=== PATIENT | male | born 1965 | race Caucasian/White ===

== ENCOUNTER → 2022-11-02 | Outpatient (CLI) | payer OTHER ==
[~2022-11-02] VITALS: Ht 180 cm; Wt 109.0 kg
[~2022-11-02] MED LIST: CATHETER FLUSH 10 ML SYR IVP PRN; REGADENOSON 0.4 MG/5 ML SYR (LEXISCAN) IV ONE
[2022-11-02 09:20] VITALS: BP 120/80
--- NOTE | 2022-11-02 14:16 | Cardiology Stress Test Report ---
Stress Test Report Date of Procedure/Referring: Date of Procedure: Nov 02, 2022 PCP Alcon Rosenberg MD Admitting Physician Admitting Physician: Attending Physician: Alcon Rosenberg MD Baseline Heart Rate: 80 Baseline Blood Pressure: Blood Pressure Systolic: 120 Blood Pressure Diastolic: 80 Baseline Vitals Vital Signs Date Time Temp Pulse Resp B/P (MAP) Pulse Ox O2 Delivery O2 Flow Rate FiO2 11/02/22 09:20 80 17 120/80 (93) 97 Room Air Baseline EKG: Baseline EKG: NSR Summary After explaining the procedure to the patient, he signed a consent and then brought to the stress nuclear laboratory. Patient received 0.4 mg Lexiscan for stress test, ECG, heart rate and blood pressure were monitored continuously. Resting and stress dose of radio tracer were injected, imaging was acquired and reviewed in short axis, horizontal long axis and vertical long axis views. TID: 1.16 SSS: 6 SDS: 5 EF: 50 1. Patient tolerated Lexiscan well 2. Reversible ischemia involving the inferior wall and inferoapical segment 3. Normal left ventricular size, ejection fraction 50% Copy Copies To 1: [facility]/EWA BLAS MD Nov 02, 2022 14:16
== END ==
LOC: CARD 07:19
PROVIDERS: ATTEND Family Medicine
DX: U07.1 COVID-19 (principal); I25.89 Other forms of chronic ischemic heart disease
CPT/HCPCS: 78452; 93017

== ENCOUNTER 2022-11-16 10:00 | Day surgery (SDC) | payer OTHER ==
[~2022-11-16] VITALS: Ht 180 cm; Wt 112.9 kg
[2022-11-16] VITALS (10 sets, daily range): BP systolic 90–114; BP diastolic 62–76
[2022-11-16 08:30] LABS: HEMATOCRIT 48 % (40-54); HEMOGLOBIN 16.6 g/dL (13.3-17.7); MEAN CORPUSCULAR HEMOGLOBIN 31 pg (25-34); MEAN CORPUSCULAR HGB CONC 35 g/dL (32-36); MEAN CORPUSCULAR VOLUME 90 fL (80-99); MEAN PLATELET VOLUME 9.6 fL (9.0-12.2); PLATELET COUNT 338 10^3/uL (130-400); WHITE BLOOD COUNT 8.4 10^3/uL (4.3-11.0)
--- NOTE | 2022-11-16 08:33 | Diagnostic Imaging Report ---
INDICATION: Preoperative evaluation prior to heart catheterization patient with abnormal stress test. Single AP view of the chest is obtained. COMPARISON: No previous study is available for comparison at this time. FINDINGS: Heart size and pulmonary vasculature are within normal limits, and the lungs are clear, bilaterally. IMPRESSION: Unremarkable chest. Dictated by: Dictated on workstation # [id number]
[2022-11-16 08:42] LABS: INR 0.9 (0.8-1.4); PROTHROMBIN TIME PATIENT 12.6 SEC (12.2-14.7)
[2022-11-16 09:27] LABS: ALANINE AMINOTRANSFERASE 41 U/L (0-55); ALBUMIN 4.7 GM/DL (3.2-4.5); ALKALINE PHOSPHATASE 64 U/L (40-136); BILIRUBIN,TOTAL 0.5 MG/DL (0.1-1.0); BUN/CREATININE RATIO 24; CALCIUM 10.6 MG/DL (8.5-10.1); CARBON DIOXIDE 23 MMOL/L (21-32); CHLORIDE 103 MMOL/L (98-107); CHOLESTEROL 222 MG/DL (< 200); CREATININE SERUM 1.14 MG/DL (0.60-1.30); GFR ESTIMATED 76; GLUCOSE 191 MG/DL (70-105); HDL CHOLESTEROL 47 MG/DL (40-60); POTASSIUM 4.2 MMOL/L (3.6-5.0); SODIUM 137 MMOL/L (135-145); TOTAL PROTEIN 7.8 GM/DL (6.4-8.2); TRIGLYCERIDES 183 MG/DL (<150); VLDL CHOLESTEROL 37 MG/DL (5-40)
[~2022-11-16 10:00] MED LIST changes: +ALLO300T2 PO; +ASPI-999 PO; -CATHETER FLUSH 10 ML SYR IVP PRN; +CITA20TA9 PO; +HEParin (CATH LAB) 2,000 ML IV ONE; +HEParin 1000 UNIT/ML (10ML VIAL) FOR BOLUS ONE; +LIDOCAINE 1% INJ 30 ML (XYLOCAINE) VIAL ONE; +LISI20TA26 PO; +MELO15TA39 PO; +METF-399 PO; +MIDAZOLAM 5 MG/5 ML (VERSED) VIAL ONE; +MULT-1067 PO; +NITRO DRIP 25000 MCG/D5W 250 ML IV ONE; +NS IV 1000 ML 1,000 ML IV ONE; +NS IV 1000 ML 1,000 ML ONE; +PRAV40TA2 PO; -REGADENOSON 0.4 MG/5 ML SYR (LEXISCAN) IV ONE; +TRIA1TAB5 PO; +VERAPAMIL 5 MG/2 ML (CALAN) VIAL IV ONE; +fentaNYL INJ 100 MCG/2 ML AMP ONE
--- NOTE | 2022-11-16 10:04 | Cardiac Procedure Note-CS/ASA ---
Pre-Procedure Note Pre-Op Procedure Note Date of Available H&P: Nov 03, 2022 Date H&P Reviewed: Nov 16, 2022 Time H&P Reviewed: 10:03 History & Physical: H&P Reviewed, Patient Examed, No changes noted Pre-Operative Diagnosis: CAD Conscious Sedation Pre-Proced Time 10:04 ASA Score 3 For ASA 3 and 4: Consider anesthesia and medical clearance. Also, for patients with a history of failed moderate sedation consider anesthesia. Airway Lungs Heart ASA score ASA 1: a normal healthy patient ASA 2: a patient with a mild systemic disease (mid diabetes, controlled hypertension, obesity ASA 3: a patient with a severe systemic disease that limits activity (angina, COPD, prior Myocardial infarction) ASA 4: a patient with an incapacitating disease that is a constant threat to life (CHF, renal failure) ASA 5: a moribund patient not expected to survive 24 hrs. (ruptured aneurysm) ASA 6: a declared brain- patient whose organs are being harvested. For emergent operations, add the letter E after the classification Mallampati Classification Grade 3 Sedation Plan Analgesia, Amnesia, Plan communicated to team members, Discussed options with patient/fam, Discussed risks with patient/fam The patient is an appropriate candidate to undergo the planned procedure, sedation, and anesthesia. The patient immediately re-assessed prior to indication. EWA DUBOIS MD Nov 16, 2022 10:04
[2022-11-16] MEDS ORDERED: ATOR80TA76 PO (10:49)
--- NOTE | 2022-11-16 10:49 | Discharge Inst-Post CATH ---
Discharge Inst-CATH/EP Problems Reviewed?: Yes Post Cardiac Cath/EP D/C Inst Follow Up/Plan Appointment with Dr. Pollard's office in 2 to 4 weeks <b>CARDIAC CATH/EP PROCEDURE DISCHARGE INSTRUCTIONS</b> ACTIVITY * Go Home directly and rest. * Limit activity of the leg (or wrist if it was used) for 7 days including aer obics, swimming, jogging, bicycling, etc. * Restrict stair-climbing for 7 days if possible, if not, climb up with your non-cath leg, then bring together on the same step. * Avoid lifting, pushing, pulling or excessive movement of the affected extremi ty for 7 days. * Customary sexual activity may be resumed after 2 days-use caution not to use a position that strains or causes pain to the affected extremity. * No driving for 24 hours. * NO SMOKING. * Avoid straining for bowel movements for 7 days. * Gentle walking on level ground is allowed. * Returning to work will depend on the type of procedure and the results. Your doctor will discuss this with you. CALL YOUR DOCTOR FOR ANY OF THE FOLLOWING: *If bleeding from the puncture site occurs- Apply gentle pressure to site with clean cloth and call your doctor or EMS. * If a knot or lump forms under the skin, increases in size, or causes pain. * If bruising appears to be worsening or moving further down your leg instead of disappearing. * Temperature above 101 F. CARE OF YOUR GROIN INCISION; * Bruising or purple discoloration of the skin near the puncture site is common. * You may shower only, no bathtub bathing for 5 days. Be careful to avoid slipping as your leg may feel stiff. * If a closure device was used on your femoral artery, please see the attached guide regarding care of the device and your leg. * Leave dressing on FOR 24 hours. CARE OF YOUR WRIST INCISION; * Bruising or purple discoloration of the skin near the puncture site is common. * You may shower. * DO NOT submerge wrist. * Leave dressing on FOR 24 hours. EWA POLLARD MD Nov 16, 2022 10:49
--- NOTE | 2022-11-16 10:53 | Cardiac Cath Report ---
Cardiac Cath Report Physician (s)/Display Associate (s) Physician EWA DUBOIS MD Pre-Procedure Diagnosis Pre-Procedure Diagnosis: CAD Post-Procedure Note Procedure Start Date: Nov 16, 2022 Name of Procedure: Left heart catheterization Findings/Procedure Note PROCEDURE NOTE: 57-year-old gentleman with history of hypertension, hyperlipidemia, had an abnormal stress test with inferior wall ischemia, scheduled for cardiac catheterization possible PTCA. After explaining the procedure to the patient, all pros and cons were explained, all questions were answered. The patient signed the consent and then he was placed in the cardiac catheterization laboratory. Groin was prepped in SL fashion local anesthesia was used. Sheath placed in the right radial artery, [employer] catheter was advanced to the left ventricular cavity, pressure was measur ed, pullback LV to aorta was done. I was unable to engage the right or the left system. I was successful in engaging the right coronary artery with a Chance right catheter and the left coronary system with EBU 3.5 guide. Multiple catheters were used prior to the successful engagement. At the end of the procedure the sheath was removed. Vascular band was used FINDINGS: Hemodynamics LV 91/5, end-diastolic pressure of 5 Aorta 80/62 mean of 60 ANATOMY: Left Main has mild disease nonobstructive disease Left Anterior Descending has mild to moderate disease, 50 to 60% stenosis at the mid LAD otherwise nonobstructive disease Left Circumflex is nondominant artery with mild disease nonobstructive disease Right Coronary Artery is dominant artery with mild ectasia, the right PDA has 60 to 70% stenosis distally, small artery. LV Gram was not done, pressure was measured CONCLUSION: 1. Ectasia and a dominant right coronary artery with 60 to 70% stenosis at the distal right PDA, small artery. Conservative management is recommended 2. 50 to 60% stenosis in the mid LAD otherwise nonobstructive disease 3. Normal left ventricular end-diastolic pressure DISCUSSION AND RECOMMENDATION: Maximize medical therapy, I am changing pravastatin to Lipitor 80 mg daily and evaluate tolerance and response Anesthesia Type: Conscious Sedation Estimated blood loss (mL): 25 ml Contrast Amount: 70 ml Total Radiation Dose: 843 mGy Post-Procedure Diagnosis Post-operative diagnosis: Chest pain Coronary artery disease Hypertension Hyperlipidemia. EWA DUBOIS MD Nov 16, 2022 10:53
[2022-11-16] MEDS ORDERED: NS IV 1000 ML 1,000 ML IV SCH (11:00)
== END 2022-11-16 13:45 | disposition home or self-care (01) ==
LOC: CATH 10:00
PROVIDERS: ATTEND Internal Medicine Cardiovascular Disease
DX: I25.10 Atherosclerotic heart disease of native coronary artery without angina pectoris (principal); I10 Essential (primary) hypertension; E78.5 Hyperlipidemia, unspecified; F17.220 Nicotine dependence, chewing tobacco, uncomplicated; E11.9 Type 2 diabetes mellitus without complications; E66.9 Obesity, unspecified; I65.23 Occlusion and stenosis of bilateral carotid arteries; Z86.16 Personal history of COVID-19; Z68.34 Body mass index [BMI] 34.0-34.9, adult; Z79.84 Long term (current) use of oral hypoglycemic drugs
CPT/HCPCS: 36415; 71045; 80053; 80061; 85027; 85610; 85730; 87081; 93005; 93458